=== PATIENT | female | born 1950 | race Caucasian/White ===

== ENCOUNTER 2023-09-14 08:53 | Inpatient (IN) | payer OTHER ==
[~2023-09-14] VITALS: Ht 162.6 cm; Wt 61.2 kg
[2023-09-14] MEDS ORDERED: ATIVAN0.5 M1 (09:01)
[2023-09-14] MEDS ORDERED: CRESTOR5 MG PO (09:01)
[2023-09-14] MEDS ORDERED: LEVOFLOXACIN250 MG PO (09:03)
[2023-09-14] MEDS ORDERED: LEVOFLOXAC25 MG/1 ML IV (09:03)
[2023-09-14 10:31] LABS: HEMATOCRIT 40.5 % (36.0-45.00); HEMOGLOBIN 13.9 g/dL (12.0-15.00); MEAN CELL VOLUME 91.4 fL (80.00-100.00); MEAN CORPUSCULAR HEMOGLOBIN 31.3 pg (27.00-32.0); MEAN CORPUSCULAR HGB CONC 34.2 g/dl (32.0-36.0); PLATELET COUNT 263 K/uL (150-450); RED BLOOD COUNT 4.43 M/uL (4.00-6.00); RED CELL DISTRIBUTION WIDTH 13.5 % (11.5-14.5)
[2023-09-14 11:06] LABS: PH,URINE 6.5 (5.0-8.0); URINE APPEARANCE Clear; URINE BILIRRUBIN Small (NEGATIVE); URINE BLOOD Small; URINE COLOR Dark Yellow; URINE GLUCOSE Negative (NEGATIVE); URINE LEUKOCYTE Small; URINE NITRATE Negative
[2023-09-14 11:06] LABS: ALBUMIN 4.3 gm/dL (3.4-5.0); BILIRUBIN TOTAL 0.7 mg/dL (0.3-1.2); BILIRUBIN,CONJUGATED 0.17 mg/dL (0.0-0.2); BILIRUBIN,UNCONJUGATED 0.53 mg/dL (0.0-0.6); CALCIUM 9.7 mg/dL (8.5-10.1); CREATININE SERUM 0.98 mg/dL (0.55-1.02); GFR 55.48; POTASSIUM 4.02 mEq/L (3.5-5.1); TOTAL PROTEIN 8.4 gm/dL (6.4-8.2)
[2023-09-14 11:09] LABS: URINE EPITHELIAL CELLS 10.6 uL (0.0-38.8); URINE RBC 97.8 uL (0.0-20.8); URINE WBC 43.1 uL (0.0-23.2)
[2023-09-14 11:17] LABS: URINE PROTEIN 300 (NEGATIVE)
[2023-09-15 06:57] LABS: HEMATOCRIT 33.4 % (36.0-45.00); HEMOGLOBIN 11.5 g/dL (12.0-15.00); MEAN CELL VOLUME 90.7 fL (80.00-100.00); MEAN CORPUSCULAR HEMOGLOBIN 31.3 pg (27.00-32.0); MEAN CORPUSCULAR HGB CONC 34.5 g/dl (32.0-36.0); PLATELET COUNT 211 K/uL (150-450); RED BLOOD COUNT 3.68 M/uL (4.00-6.00); RED CELL DISTRIBUTION WIDTH 13.3 % (11.5-14.5)
[2023-09-15 07:41] LABS: ALBUMIN 3.2 gm/dL (3.4-5.0); ALKALINE PHOSPHATASE 66 U/L (50-136); ALT/SGPT 21 U/L (12-78); ANION GAP 10 (10.0-20.0); AST/SGOT 24 U/L (15-37); BILIRUBIN TOTAL 0.62 mg/dL (0.3-1.2); BLOOD UREA NITROGEN 13 mg/dL (7-18); BUN CREA RATIO 17 (7.0-25.0); CALCIUM 8.6 mg/dL (8.5-10.1); CARBON DIOXIDE 23 mEq/L (21-32); CHLORIDE 109 mmol/L (98-107); CHOL HDL RATIO 2.2 (0-5.0); CHOLESTEROL 163 mg/dL (0-200); CREATININE SERUM 0.78 mg/dL (0.55-1.02); GFR 72.19; GLOBULINA 2.8 G/DL (2.4-3.5); GLUCOSE FASTING 95 mg/dL (65-100); HDL 74 mg/dl (40-60); LDL 64 mg/dl (0-130); OSMOLALITY SERUM 276 MOSM/KG (275-295); PHOSPHOROUS 3.7 mg/dL (2.5-4.9); POTASSIUM 4.03 mEq/L (3.5-5.1); SODIUM 138 mmol/L (136-145); TRIGLYCERIDES 126 mg/dL (0-150); VLDL 25 (0-39)
[2023-09-15 07:42] LABS: C-REACTIVE PROTEIN < 0.29 MG/DL (0.00-0.29)
[2023-09-15 07:50] LABS: ERYTHROCYTE SEDIMENTATION RATE 7 mm/hr
== END 2023-09-17 12:55 | disposition home or self-care (01) | DRG 690 ==
LOC: ER 08:53 → SEC-K 12:40 → SURH 17:31 → MEDJ 17:46
PROVIDERS: General Practice; ADMIT Internal Medicine; ATTEND Internal Medicine
PROC: BT43ZZZ Ultrasonography of Bilateral Kidneys (ICD-10-PCS; principal; 2023-09-14)
DX: N39.0 Urinary tract infection, site not specified (principal); N17.9 Acute kidney failure, unspecified; B96.20 Unspecified Escherichia coli [E. coli] as the cause of diseases classified elsewhere

== ENCOUNTER 2023-10-21 08:01 | Outpatient (CLI) | payer OTHER ==
[~2023-10-21 08:01] MED LIST: ATIVAN0.5 M1; CRESTOR5 MG PO; LEVOFLOXAC25 MG/1 ML IV; LEVOFLOXACIN250 MG PO
[2023-10-21 09:19] LABS: HEMATOCRIT 40.4 % (36.0-45.00); HEMOGLOBIN 13.7 g/dL (12.0-15.00); MEAN CELL VOLUME 93.5 fL (80.00-100.00); MEAN CORPUSCULAR HEMOGLOBIN 31.7 pg (27.00-32.0); MEAN CORPUSCULAR HGB CONC 33.9 g/dl (32.0-36.0); PLATELET COUNT 296 K/uL (150-450); RED BLOOD COUNT 4.32 M/uL (4.00-6.00); RED CELL DISTRIBUTION WIDTH 13.2 % (11.5-14.5)
[2023-10-21 09:33] LABS: URINE APPEARANCE Clear; URINE BILIRRUBIN Negative (NEGATIVE); URINE BLOOD Small; URINE COLOR Yellow; URINE GLUCOSE Negative (NEGATIVE); URINE LEUKOCYTE Trace; URINE NITRATE Negative; URINE PROTEIN Negative (NEGATIVE); URINE UROBILINOGEN 0.2 E.U./dl
[2023-10-21 09:42] LABS: URINE RBC 104.4 uL (0.0-20.8); URINE WBC 2.7 uL (0.0-23.2)
[2023-10-21 10:06] LABS: ALBUMIN 3.9 gm/dL (3.4-5.0); BILIRUBIN TOTAL 0.51 mg/dL (0.3-1.2); CALCIUM 9.1 mg/dL (8.5-10.1); CHOL HDL RATIO 2.9 (0-5.0); CREATININE SERUM 0.82 mg/dL (0.55-1.02); FREE TRIODOTIRONINE 2.41 pg/ml (2.18-3.98); GFR 68.15; GLOBULINA 3.3 G/DL (2.4-3.5); MAGNESIUM 2.3 mg/dL (1.8-2.4); PHOSPHOROUS 3.2 mg/dL (2.5-4.9); POTASSIUM 4.36 mEq/L (3.5-5.1); T4 FREE 0.68 NG/ML (0.76-1.46); TOTAL PROTEIN 7.2 gm/dL (6.4-8.2); TSH 1.4 uIU/mL (0.358-3.74)
[2023-10-21 11:13] LABS: URINE EPITHELIAL CELLS 1.3 uL (0.0-38.8)
[2023-10-22 13:33] LABS: ob NEGATIVE (NEGATIVE)
[2023-10-22 16:10] LABS: CALCIUM IONIZED 4.9 mg/dL (4.5-5.6)
== END 2023-10-21 08:02 | disposition home or self-care (01) ==
LOC: LAB 08:01
PROVIDERS: ATTEND Orthopaedic Surgery
DX: E55.9 Vitamin D deficiency, unspecified (principal); M85.9 Disorder of bone density and structure, unspecified; E56.1 Deficiency of vitamin K; E21.3 Hyperparathyroidism, unspecified

== ENCOUNTER 2023-11-24 17:32 | Inpatient (IN) | payer OTHER ==
[~2023-11-24] VITALS: Ht 154.9 cm; Wt 63.0 kg
--- NOTE | 2023-11-24 17:57 | NUR ---
SE RECIBE PTE ALERTA Y ORIENTADA X3 LA CUAL REFIERE VENIR POR DOLOR EN CUADRANTE INFERIOR DERECHO DEL ABDOMEN DESDE LA MANANA DE HOY. DR. CRUZ GREGORIO LA ENVIA A ARTEMIO DE EMERGENCIA CON REFERIDO MEDICO. PTE SE COLOCA EN AREA DE OBSERVACION.
[2023-11-24] MEDS ORDERED: FAMOTIDINE/PF 20 MG in 0.9 % SODIUM CHLORIDE 8 ML IV PUSH STA (18:34)
[2023-11-24] MEDS ORDERED: CEFTRIAXONE SODIUM 1,000 MG VIAL IV ONE (18:45)
[2023-11-24] MEDS ORDERED: KETOROLAC TROMETHAMINE 30 MG VIAL IV ONE (18:45)
[2023-11-24] MEDS ORDERED: 0.9 % SODIUM CHLORIDE 1,000 ML IV SCH ×2 (18:45→22:30)
--- NOTE | 2023-11-24 18:59 | NUR ---
MS DENIS ORIENTA PTE SOBRE TX MEDICO EL CUAL REFIERE ENTENDER.SE LE EXTRAEN MUESTRAS BAJO MEDIDAS ASEPTICAS,SE CANALIZA Y SE ADMINISTRA MEDICAMENTO MICHAEL ORDEN MEDICA.SE NOTIFICA CT.
[2023-11-24 19:03] LABS: HEMATOCRIT 39.8 % (36.0-45.00); HEMOGLOBIN 13.7 g/dL (12.0-15.00); MEAN CELL VOLUME 92.8 fL (80.00-100.00); MEAN CORPUSCULAR HEMOGLOBIN 31.9 pg (27.00-32.0); MEAN CORPUSCULAR HGB CONC 34.3 g/dl (32.0-36.0); PLATELET COUNT 253 K/uL (150-450); RED BLOOD COUNT 4.28 M/uL (4.00-6.00)
[2023-11-24 19:37] LABS: INR 0.99; PARTIAL THROMBOPLASTIN TIME 27.6 SECONDS (22.0-34.0); PROTHROMBIN TIME 10.4 SECONDS (9.0-11.5)
[2023-11-24 19:43] LABS: ALBUMIN 4.4 gm/dL (3.4-5.0); BILIRUBIN TOTAL 0.57 mg/dL (0.3-1.2); CREATININE SERUM 0.88 mg/dL (0.55-1.02); GFR 62.81; GLOBULINA 3.5 G/DL (2.4-3.5); POTASSIUM 3.74 mEq/L (3.5-5.1); TOTAL PROTEIN 7.9 gm/dL (6.4-8.2)
[2023-11-24] MEDS ORDERED: CIPROFLOXACIN IN 5 % DEXTROSE 200 ML IV SCH (22:33)
[2023-11-24] MEDS ORDERED: ACETAMINOPHEN 500 MG GEL..CAP PO PRN (22:45)
[2023-11-24] MEDS ORDERED: MEPERIDINE HCL/PF 25 MG/ML VIAL IM PRN (22:45)
[2023-11-24] MEDS ORDERED: ONDANSETRON HCL 4 MG in 0.9 % SODIUM CHLORIDE 50 ML IV PRN (22:45)
[2023-11-25 00:12] LABS: URINE APPEARANCE Clear; URINE BILIRRUBIN Negative (NEGATIVE); URINE BLOOD Small; URINE COLOR Yellow; URINE GLUCOSE Negative (NEGATIVE); URINE LEUKOCYTE Negative; URINE NITRATE Negative; URINE PROTEIN Negative (NEGATIVE); URINE UROBILINOGEN 0.2 E.U./dl
[2023-11-25 00:13] LABS: URINE BACTERIA 20.1 uL (0.0-1933); URINE EPITHELIAL CELLS 1.7 uL (0.0-38.8); URINE RBC 54.4 uL (0.0-20.8); URINE WBC 3.7 uL (0.0-23.2)
[2023-11-25] MEDS ORDERED: METRONIDAZOLE/SODIUM CHLORIDE 100 ML IV SCH (01:00)
[2023-11-25] MEDS ORDERED: LORazepam 0.5 MG TABLET PO SCH ×2 (01:15→21:00)
[2023-11-25] MEDS ORDERED: FAMOTIDINE/PF 20 MG/2 ML VIAL ONE (08:05)
[2023-11-25] MEDS ORDERED: METHIMAZOLE 10 MG TABLET PO SCH (09:00)
[2023-11-25] MEDS ORDERED: FAMOTIDINE/PF 20 MG in 0.9 % SODIUM CHLORIDE 8 ML IV PUSH SCH (09:00)
[2023-11-25] MEDS ORDERED: METHIMAZOLE 5 MG TABLET PO SCH (09:00)
[2023-11-25] MEDS ORDERED: PIPERACILLIN/TAZOBACTAM SODIUM 3.375 GM in 0.9 % SODIUM CHLORIDE 100 ML IV SCH (12:51)
[2023-11-26 08:05] LABS: HEMATOCRIT 31.9 % (36.0-45.00); HEMOGLOBIN 10.9 g/dL (12.0-15.00); MEAN CELL VOLUME 94.9 fL (80.00-100.00); MEAN CORPUSCULAR HEMOGLOBIN 32.4 pg (27.00-32.0); MEAN CORPUSCULAR HGB CONC 34.1 g/dl (32.0-36.0); PLATELET COUNT 162 K/uL (150-450); RED BLOOD COUNT 3.36 M/uL (4.00-6.00); RED CELL DISTRIBUTION WIDTH 12.8 % (11.5-14.5)
[2023-11-26] MEDS ORDERED: FAMOTIDINE/PF 20 MG/2 ML VIAL ONE (08:07)
[2023-11-26 08:34] LABS: ALBUMIN 3.1 gm/dL (3.4-5.0); BILIRUBIN TOTAL 0.69 mg/dL (0.3-1.2); CALCIUM 8.2 mg/dL (8.5-10.1); CREATININE SERUM 0.62 mg/dL (0.55-1.02); GFR 94.09; GLOBULINA 2.6 G/DL (2.4-3.5); MAGNESIUM 2.2 mg/dL (1.8-2.4); PHOSPHOROUS 3.8 mg/dL (2.5-4.9); POTASSIUM 3.96 mEq/L (3.5-5.1); TOTAL PROTEIN 5.7 gm/dL (6.4-8.2)
[2023-11-26 08:38] LABS: C-REACTIVE PROTEIN 6.49 MG/DL (0.00-0.29)
[2023-11-26] MEDS ORDERED: SOD FERRIC GLUC COMPLX/SUCROSE 62.5 MG in 0.9 % SODIUM CHLORIDE 50 ML IV SCH (12:05)
[2023-11-27] MEDS ORDERED: FAMOTIDINE/PF 20 MG/2 ML VIAL ONE (08:14)
[2023-11-27 08:50] LABS: HEMATOCRIT 30.8 % (36.0-45.00); HEMOGLOBIN 10.6 g/dL (12.0-15.00); MEAN CORPUSCULAR HEMOGLOBIN 31.6 pg (27.00-32.0); MEAN CORPUSCULAR HGB CONC 34.3 g/dl (32.0-36.0); PLATELET COUNT 193 K/uL (150-450); RED BLOOD COUNT 3.35 M/uL (4.00-6.00); RED CELL DISTRIBUTION WIDTH 12.9 % (11.5-14.5)
[2023-11-27] MEDS ORDERED: PEPCID AC20 MG PO (09:28)
[2023-11-27] MEDS ORDERED: AMOX1TAB5 PO (09:28)
[2023-11-27] MEDS ORDERED: INTESTINEX680 M1 PO (09:28)
[2023-11-27] MEDS ORDERED: TRAM1TAB98 PO (09:28)
== END 2023-11-27 11:23 | disposition home or self-care (01) | DRG 399 ==
LOC: ER 17:32 → SURG 22:38
PROVIDERS: General Practice; Internal Medicine Infectious Disease; Surgery; ADMIT Internal Medicine; ATTEND Internal Medicine
PROC: BW21YZZ Computerized Tomography (CT Scan) of Abdomen and Pelvis using Other Contrast (ICD-10-PCS; 2023-11-24)
PROC: 0DTJ4ZZ Resection of Appendix, Percutaneous Endoscopic Approach (ICD-10-PCS; principal; 2023-11-25 13:00)
DX: K35.890 Other acute appendicitis without perforation or gangrene (principal); E78.49 Other hyperlipidemia; E05.90 Thyrotoxicosis, unspecified without thyrotoxic crisis or storm